=== PATIENT | female | born 1975 | race Caucasian/White ===

== ENCOUNTER 2020-12-05 15:09 | Outpatient (REF) | payer BC, SELFPAY ==
--- NOTE | ~2020-12-05 | MM_ITS ---
EXAMINATION: MM SCREENING DIGITAL BREAST TOMOSYNTHESIS, BILATERAL CLINICAL INFORMATION: Screening. Asymptomatic. The lifetime risk of breast cancer based on the Tyrer-Cuzick Model is 7%. COMPARISON: Mammography: 11/30/2019, 05/06/2018 (baseline). TECHNIQUE: Digital breast tomosynthesis is performed in both the craniocaudal and mediolateral oblique views along with computer-aided detection (CAD). Synthesized 2D images are generated from the tomosynthesis. FINDINGS: There are scattered areas of fibroglandular density (ACR BI-RADS breast composition Category b). Parenchymal pattern is similar to prior study and borders on heterogeneously dense. There is denser parenchymal tissue composition again in the bilateral upper outer quadrants along with numerous bilateral scattered similar appearing punctate round calcifications. There is no developing density or interval mass or architectural abnormality. The axilla and skin contours are unremarkable. MM/MM tomosynthesis screening BI IMPRESSION: No mammographic evidence of malignancy. ASSESSMENT: BI-RADS 2: Benign RECOMMENDATION: Routine annual mammography screening. This patient's information was entered into a reminder system with a target due date for their next mammogram.
== END 2020-12-05 15:10 | disposition home or self-care (01) ==
LOC: HO.MAMMO 15:09
PROVIDERS: Visit Provider Internal Medicine
DX: Z12.31 Encounter for screening mammogram for malignant neoplasm of breast (principal)
CPT/HCPCS: 77063; 77067

== ENCOUNTER 2021-06-07 06:53 | Outpatient (REF) | payer BC, SELFPAY ==
[2021-06-07 07:14] LABS: MANUAL DIFF FLAG NO
[2021-06-07 07:25] LABS: Basophils Percent Auto 0.9 % (0-2); Eosinophils Absolute Auto 0.1 X10*3/uL (0.0-0.4); Eosinophils Percent Auto 1.8 % (0-4); Hematocrit 39.2 % (37.0-47.0); Hemoglobin 12.2 g/dl (12.0-16.0); Imm Gran Abs Auto 0.01 X10*3/uL (0.00-0.03); Imm Gran Pct Auto 0.2 % (0.0-0.4); Lymphocytes Percent Auto 42.7 % (20-40); Mean Corpuscular HGB Conc 31.1 g/dl (31.0-35.0); Mean Corpuscular Hemoglobin 26.6 pg (27.0-33.0); Mean Corpuscular Volume 85.4 fL (80.0-98.0); Mean Platelet Volume 9.7 fL (9.4-12.3); Monocytes Absolute Auto 0.5 X10*3/uL (0.1-1.2); Monocytes Percent Auto 10.9 % (2-11); Neutrophils Percent Auto 43.5 % (45-73); Platelet Count 319 X10*3/uL (160-400); Red Blood Count 4.59 X10*6/uL (4.20-5.50); White Blood Count 4.6 X10*3/uL (4.8-10.8)
[2021-06-07 08:03] LABS: Alanine Aminotransferase 22 U/L (0-31); Albumin Level 4.1 g/dL (3.5-5.0); Alkaline Phosphatase 65 U/L (39-117); Anion Gap 10 (12-20); Aspartate Amino Transferase 23 U/L (5-31); Bilirubin Total 1.3 mg/dL (0.0-1.0); Blood Urea Nitrogen 11 mg/dL (9-16); Calcium 9.4 mg/dL (8.4-10.2); Carbon Dioxide 27 mmol/L (22-29); Chloride 105 mmol/L (96-108); Estimated Glomerular Filt Rate > 60; Glucose Random 81 mg/dL (60-115); Potassium 4.4 mmol/L (3.3-5.1); Sodium 138 mmol/L (135-145); Total Protein 7.2 g/dL (6.5-8.0)
[2021-06-07 08:12] LABS: Thyroid Stimulating Hormone 1.63 uIU/mL (0.32-4.0)
== END 2021-06-07 06:54 | disposition home or self-care (01) ==
LOC: HO.LAB 06:53
PROVIDERS: PCP Internal Medicine; Visit Provider Internal Medicine
DX: Z00.00 Encounter for general adult medical examination without abnormal findings (principal); K59.04 Chronic idiopathic constipation; R12 Heartburn
CPT/HCPCS: 36415; 80053; 84443; 85025

== ENCOUNTER 2021-12-18 14:15 | Outpatient (REF) | payer BC, SELFPAY ==
--- NOTE | ~2021-12-18 | MM_ITS ---
EXAMINATION: MM SCREENING DIGITAL BREAST TOMOSYNTHESIS, BILATERAL CLINICAL INFORMATION: Screening. Asymptomatic. The lifetime risk of breast cancer based on the Tyrer-Cuzick Model is 6.7%. COMPARISON: Mammography: December 05, 2020 and studies dating back to May 06, 2018 TECHNIQUE: Digital breast tomosynthesis is performed in both the craniocaudal and mediolateral oblique views along with computer-aided detection (CAD). Synthesized 2D images are generated from the tomosynthesis. FINDINGS: The breasts are heterogeneously dense, which may obscure small masses (ACR BI-RADS breast composition Category c). There are no new significant masses, abnormal calcifications, or other abnormalities. There is again noted to be multiplicity and bilaterality of calcifications. MM/MM tomosynthesis screening BI IMPRESSION: No significant changes from prior exam. ASSESSMENT: BI-RADS 2: Benign RECOMMENDATION: Routine annual mammography screening. This patient's information was entered into a reminder system with a target due date for their next mammogram.
== END 2021-12-18 14:16 | disposition home or self-care (01) ==
LOC: HO.MAMMO 14:15
PROVIDERS: Visit Provider Internal Medicine
DX: Z12.31 Encounter for screening mammogram for malignant neoplasm of breast (principal)
CPT/HCPCS: 77063; 77067

== ENCOUNTER 2022-06-21 06:25 | Outpatient (REF) | payer OTHER, SELFPAY ==
[2022-06-21 08:16] LABS: Alanine Aminotransferase 7 U/L (0-31); Albumin Level 3.8 g/dL (3.5-5.0); Alkaline Phosphatase 62 U/L (39-117); Anion Gap 13 (12-20); Aspartate Amino Transferase 14 U/L (5-31); Bilirubin Total 1.5 mg/dL (0.0-1.0); Blood Urea Nitrogen 8 mg/dL (9-16); Carbon Dioxide 27 mmol/L (22-29); Chloride 106 mmol/L (96-108); Estimated Glomerular Filt Rate > 60; Glucose Random 76 mg/dL (60-115); Potassium 3.6 mmol/L (3.3-5.1); Sodium 142 mmol/L (135-145); Total Protein 6.6 g/dL (6.5-8.0)
== END 2022-06-21 06:26 | disposition home or self-care (01) ==
LOC: HO.LAB 06:25
PROVIDERS: PCP Internal Medicine; Visit Provider Internal Medicine
DX: Z00.00 Encounter for general adult medical examination without abnormal findings (principal); K59.04 Chronic idiopathic constipation; R12 Heartburn
CPT/HCPCS: 36415; 80053

== ENCOUNTER 2022-07-18 12:05 | Outpatient (REF) | payer OTHER, SELFPAY ==
--- NOTE | ~2022-07-18 | XR_ITS ---
EXAMINATION: XR BOTH KNEES AP STANDING XR LEFT KNEE, 2 VIEWS CLINICAL INFORMATION: Pain. COMPARISON: None available. TECHNIQUE: Standing AP view of both knees and lateral and sunrise views of the left knee. FINDINGS: Right Knee: No displaced fracture. No dislocation. No joint space narrowing or marginal osteophytes. No osseous erosion. No abnormal soft tissue calcification. Left Knee: No acute fracture or dislocation. No joint space narrowing or marginal osteophytes. No osseous erosion. No abnormal soft tissue calcification. No significant joint effusion. XR/XR knee LT 2V IMPRESSION: RIGHT KNEE: Unremarkable examination. LEFT KNEE: Unremarkable examination.
--- NOTE | ~2022-07-18 | XR_ITS ---
EXAMINATION: XR BOTH KNEES AP STANDING XR LEFT KNEE, 2 VIEWS CLINICAL INFORMATION: Pain. COMPARISON: None available. TECHNIQUE: Standing AP view of both knees and lateral and sunrise views of the left knee. FINDINGS: Right Knee: No displaced fracture. No dislocation. No joint space narrowing or marginal osteophytes. No osseous erosion. No abnormal soft tissue calcification. Left Knee: No acute fracture or dislocation. No joint space narrowing or marginal osteophytes. No osseous erosion. No abnormal soft tissue calcification. No significant joint effusion. XR/XR knee standing BI IMPRESSION: RIGHT KNEE: Unremarkable examination. LEFT KNEE: Unremarkable examination.
== END 2022-07-18 12:06 | disposition home or self-care (01) ==
LOC: HO.HOSX 12:05
PROVIDERS: Visit Provider Orthopaedic Surgery
DX: M23.92 Unspecified internal derangement of left knee (principal)
CPT/HCPCS: 73560; 73565

== ENCOUNTER 2022-09-08 03:10 | Emergency (ER) | payer OTHER, SELFPAY ==
[2022-09-08 03:14] VITALS: BP 122/69; PULSE 117; RESP 18; TEMP 36.2; O2SAT 99; BMI 27.5
--- NOTE | 2022-09-08 04:24 | ED.NAVMDI ---
HPI - Nausea/Vomiting/Diarrhea General Chief complaint: Nausea/Vomiting/Diarrhea Stated complaint: n/v/n Time Seen by Provider: 09/08/22 03:24 Source: patient Mode of arrival: ambulatory Limitations: no limitations History of Present Illness HPI Narrative: 46-year-old female presents with nausea, vomiting and diarrhea. Symptoms started 2 days ago. She had 2 episodes of nonbilious nonbloody emesis. She has had several loose bowel movements that have been nonbloody. She denies any sick contacts. She has had no fevers or chills. She does have epigastric abdominal pain. The pain is moderate to severe. There is no clear relieving or exacerbating features. When she has a cramping sensation no, she has nausea and/or vomiting as well as diarrhea Related Data Home Medications Medication Instructions Recorded Confirmed pantoprazole 40 mg tablet,delayed 40 mg PO DAILY 07/18/22 release Previous Rx's Medication Instructions Recorded ondansetron 4 mg disintegrating 4 mg PO Q8H PRN nausea and 09/08/22 tablet vomiting #14 tabs Allergies Allergy/AdvReac Type Severity Reaction Status Date / Time No Known Allergies Allergy Verified 09/08/22 03:14 Review of Systems Review of Systems: CONSTITUTIONAL: Denies weight loss, fever and chills. HEENT: Denies changes in vision and hearing. RESPIRATORY: Denies SOB and cough. CV: Denies palpitations no CP. GI: Positive abdominal pain, nausea, vomiting and diarrhea. : Denies dysuria and urinary frequency. MSK: Denies myalgia and joint pain. SKIN: Denies rash and pruritus. NEUROLOGICAL: Denies headache and syncope. PSYCHIATRIC: Denies recent changes in mood. Denies anxiety and depression. All other ROS are negative unless in [facility] Social History Social History Advance Directives: No Advance Directives Information Provided: No Physical Exam Vital Signs: Vital Signs: Last Vital Signs Temp 97.2 F 09/08/22 03:14 Pulse 117 H 09/08/22 03:14 Resp 18 09/08/22 03:14 BP 122/69 09/08/22 03:14 Pulse Ox 99 09/08/22 03:14 O2 Del Method Room Air 09/08/22 03:14 BMI result Body Mass Index 27.5 GEN: Well developed, no acute distress, alert, oriented HEENT: Normocephalic, atraumatic, normal external ears, nose appears normal, no oropharyngeal edema or exudates Eyes: Normal to appearance Neck: Supple, no lymphadenopathy Respiratory: Talks in complete sentences, no respiratory distress, clear to auscultation bilaterally Cardiovascular: Regular rate and rhythm, no murmurs rubs or gallops Abdomen: Soft, epigastric tenderness, negative Blue sign, negative McBurney's point tenderness, nondistended, no guarding, no rebound Back: No CVA tenderness Extremities: No clubbing cyanosis or edema Neurologic: No focal neurologic deficits, cranial nerves 2-12 intact, strength is 5/5 bilaterally Skin: No rash Course Course Course Narrative: 46-year-old female presents with epigastric abdominal pain, nausea, vomiting and diarrhea. Examination revealed tenderness without rebound or guarding. Negative Blue sign arguing against acute cholecystitis. She has negative McBurney's point tenderness arguing against acute appendicitis. Most likely she has gastroenteritis, or pancreatitis. Patient receive IV fluids, antiemetics, analgesics and H2 swati. Patient will have frequent re-evaluation Reevaluation(s) Reevaluation #1: Patient is feeling much better at this time. Discussed all results. Patient will make sure she maintains hydration. I will prescribe the patient antiemetics. She will return for inability to tolerate oral intake. She follow-up with her primary care doctor as needed. Time: 06:07 Medications Administered Discontinued Medications Generic Name Dose Route Start Last Admin Trade Name Freq PRN Reason Stop Dose Admin Famotidine 20 mg 09/08/22 03:45 09/08/22 05:05 Famotidine/Pf 20 Mg/2 Ml Vial IVPUSH 09/08/22 03:46 20 mg ONCE ONE Administration Sodium Chloride 1,000 mls @ 999 mls/hr 09/08/22 03:45 09/08/22 04:52 Ns IV 09/08/22 04:45 999 mls/hr .Q1H1M LEE Administration Ketorolac Tromethamine 15 mg 09/08/22 03:45 09/08/22 05:05 Ketorolac Tromethamine 15 Mg/Ml Vial IVPUSH 09/08/22 03:46 15 mg ONCE ONE Administration Ondansetron HCl 4 mg 09/08/22 03:45 09/08/22 05:05 Ondansetron Hcl 4 Mg/2 Ml Vial IVPUSH 09/08/22 03:46 4 mg ONCE ONE Administration Medical Decision Making Medical Decision Making [facility] Narrative: 46-year-old female presents with epigastric abdominal pain associated with nausea, vomiting and diarrhea. Examination revealed epigastric tenderness, no pulsatile masses, no rebound, no guarding. She had negative Blue sign arguing against acute cholecystitis. No McBurney's point tenderness arguing against acute appendicitis. She had no CVA tenderness, doubt acute pyelonephritis or renal colic. Differential diagnosis could include gastritis, peptic ulcer, pancreatitis, gastroenteritis. Doubt catastrophic intra-abdominal pathology such as AAA, dissection, mesenteric ischemia. There is no indication for emergent imaging of the abdomen. Will provide patient with intravenous fluids, analgesics, antiemetics, H2 blockers. I will re-evaluate the patient following workup. Differential Diagnosis Differential Diagnoses: The differential diagnosis associated with the presentation includes (See above) Lab Data [facility] Lab Attestation statement: I reviewed the patient's lab results. 09/08/22 04:51 09/08/22 04:51 Labs: Lab Results 09/08/22 09/08/22 Range/Units 04:51 04:51 WBC 9.1 (4.8-10.8) X10*3/uL RBC 4.72 (4.20-5.50) X10*6/uL Hgb 11.9 L (12.0-16.0) g/dl Hct 38.2 (37.0-47.0) % MCV 80.9 (80.0-98.0) fL MCH 25.2 L (27.0-33.0) pg MCHC 31.2 (31.0-35.0) g/dl RDW 16.4 H (11.0-16.0) % Plt Count 347 (160-400) X10*3/uL MPV 9.4 (9.4-12.3) fL Immature Gran % (Auto) 0.3 (0.0-0.4) % Neut % (Auto) 90.8 H (45-73) % Lymph % (Auto) 3.5 L (20-40) % [place] % (Auto) 5.0 (2-11) % Eos % (Auto) 0.1 (0-4) % Baso % (Auto) 0.3 (0-2) % Lymph # (Auto) 0.3 L (1.2-4.9) X10*3/uL [place] # (Auto) 0.5 (0.1-1.2) X10*3/uL Eos # (Auto) 0.0 (0.0-0.4) X10*3/uL Baso # (Auto) 0.0 (0.0-0.2) X10*3/uL Abs Immat Gran (auto) 0.03 (0.00-0.03) X10*3/uL Absolute Neuts (auto) 8.3 (2.0-8.3) x10*3/uL Absolute Nucleated RBC 0.000 (0.0-0.012) X10*3/uL Nucleated RBC % (auto) 0.0 (0.0-0.2) /100WBC Smear Tech's Comments VERIFIED Sodium 137 (135-145) mmol/L Potassium 3.3 (3.3-5.1) mmol/L Chloride 107 (96-108) mmol/L Carbon Dioxide 22 (22-29) mmol/L Anion Gap 11 L (12-20) BUN 10 (9-16) mg/dL Creatinine 0.75 (0.5-1.4) mg/dL Estim Creat Clear Calc 92.5 Estimated GFR > 60 Random Glucose 120 H (60-115) mg/dL Calcium 8.6 (8.4-10.2) mg/dL Total Bilirubin 1.9 H (0.0-1.0) mg/dL AST 16 (5-31) U/L ALT 14 (0-31) U/L Alkaline Phosphatase 88 (39-117) U/L Total Protein 7.7 (6.5-8.0) g/dL Albumin 4.1 (3.5-5.0) g/dL Lipase 22 (8-78) U/L Independent Historian Clinical information obtained from an independent historian. History obtained from or confirmed by: Spouse Prescription Management I considered prescription management with: Pain Medication Discharge Plan Discharge Clinical Impression: Gastroenteritis Patient Disposition: Home, Self-Care Instructions: Gastroenteritis (ED) Prescriptions: New ondansetron 4 mg tablet,disintegrating 4 mg PO Q8H PRN (Reason: nausea and vomiting) Qty: 14 0RF No Action pantoprazole 40 mg tablet,delayed release (DR/EC) 40 mg PO DAILY Referrals: Brianna Huff MD [Primary Care Provider] - 2 days
[2022-09-08] MEDS: 0.9 % Sodium Chloride 1,000 ML 999 ML IV (04:52)
[2022-09-08 04:57] LABS: Basophils Percent Auto 0.3 % (0-2); Eosinophils Percent Auto 0.1 % (0-4); Hematocrit 38.2 % (37.0-47.0); Hemoglobin 11.9 g/dl (12.0-16.0); Imm Gran Abs Auto 0.03 X10*3/uL (0.00-0.03); Imm Gran Pct Auto 0.3 % (0.0-0.4); Lymphocytes Absolute Auto 0.3 X10*3/uL (1.2-4.9); Lymphocytes Percent Auto 3.5 % (20-40); MANUAL DIFF FLAG SCAN; Mean Corpuscular HGB Conc 31.2 g/dl (31.0-35.0); Mean Corpuscular Hemoglobin 25.2 pg (27.0-33.0); Mean Corpuscular Volume 80.9 fL (80.0-98.0); Mean Platelet Volume 9.4 fL (9.4-12.3); Monocytes Absolute Auto 0.5 X10*3/uL (0.1-1.2); Neutrophils Absolute Auto 8.3 x10*3/uL (2.0-8.3); Neutrophils Percent Auto 90.8 % (45-73); Platelet Count 347 X10*3/uL (160-400); Red Blood Count 4.72 X10*6/uL (4.20-5.50); Red Cell Distribution Width 16.4 % (11.0-16.0); SCAN SMEAR FLAG 1; White Blood Count 9.1 X10*3/uL (4.8-10.8)
[2022-09-08] MEDS: Ketorolac Tromethamine 15 MG/ML VIAL IVPUSH (05:05)
[2022-09-08] MEDS: ondansetron HCL 4 MG/2 ML VIAL IVPUSH (05:05)
[2022-09-08] MEDS: Famotidine/PF 20 MG/2 ML VIAL IVPUSH (05:05)
[2022-09-08 05:14] LABS: Alanine Aminotransferase 14 U/L (0-31); Albumin Level 4.1 g/dL (3.5-5.0); Alkaline Phosphatase 88 U/L (39-117); Anion Gap 11 (12-20); Aspartate Amino Transferase 16 U/L (5-31); Bilirubin Total 1.9 mg/dL (0.0-1.0); Blood Urea Nitrogen 10 mg/dL (9-16); Calcium 8.6 mg/dL (8.4-10.2); Carbon Dioxide 22 mmol/L (22-29); Chloride 107 mmol/L (96-108); Creatinine Clr Calc Pharmacy 92.5; Estimated Glomerular Filt Rate > 60; Glucose Random 120 mg/dL (60-115); Lipase 22 U/L (8-78); Potassium 3.3 mmol/L (3.3-5.1); Sodium 137 mmol/L (135-145); Total Protein 7.7 g/dL (6.5-8.0)
[2022-09-08 05:18] LABS: SLIDE REVIEW VERIFIED
[2022-09-08 06:00] VITALS: BP 99/54; PULSE 94; RESP 19; O2SAT 96
== END 2022-09-08 07:17 | disposition home or self-care (01) ==
PROVIDERS: Emergency Provider Emergency Medicine; PCP Internal Medicine
DX: K52.9 Noninfective gastroenteritis and colitis, unspecified (principal); R11.2 Nausea with vomiting, unspecified; Z79.899 Other long term (current) drug therapy
CPT/HCPCS: 36415; 80053; 83690; 85025; 96374; 96375; 99284; J1885; J2405

== ENCOUNTER 2022-12-24 09:23 | Day surgery (SDC) | payer OTHER, SELFPAY ==
--- NOTE | 2022-12-23 10:17 | HO.ANESPROP2 ---
HPI - Anesthesia Eval Consult details Narrative: 47yo F for Upper Endoscopy and Colonoscopy PMFSH Active Problems Active Problems: All Active Problems (Updated 12/23/22 @ 06:44 by Amina Kraus RN) Internal derangement of left knee (Acute) Past Medical History Medical History GERD (gastroesophageal reflux disease) Surgical History Surgical History History of tubal ligation Social History Social History Patient Tobacco Use Status: Never used Tobacco Have you been hit, kicked, punched, or otherwise hurt by someone within the past year? If so, by whom?: No Are you DNR?: No Advance Directives: No Advance Directives Information Provided: Yes Recently lost weight without trying: No Eating poorly because of decreased appetite: No Nutrition Risks: No Nutritional Risk Patient : No Meds Allergies Allergy/AdvReac Type Severity Reaction Status Date / Time No Known Allergies Allergy Verified 09/08/22 03:14 Home Medications Medication Instructions Recorded Confirmed Last Taken Type pantoprazole 40 mg tablet,delayed 40 mg PO DAILY 07/18/22 Unknown History release Exam Exam Date and Time: December 23, 2022 1017 Pertinent Lab Results Pertinent Lab Results: Laboratory Tests 09/08/22 04:51 WBC 9.1 Hgb 11.9 L Hct 38.2 Plt Count 347 Sodium 137 Potassium 3.3 Chloride 107 Carbon Dioxide 22 BUN 10 Creatinine 0.75 Assessment and Plan Assessment Anesthesia Assessment: Chart Reviewed
[2022-12-24 10:25] VITALS: BP 144/85; PULSE 76; RESP 18; TEMP 36.6; O2SAT 99
[2022-12-24] MEDS: Lactated Ringers 1,000 ML 100 ML IVCONT (10:27)
[2022-12-24 10:28] VITALS: BMI 28.8
--- NOTE | 2022-12-24 10:58 | MHC.SHP ---
Pre-Procedural Eval Section A Date of Service: 12/24/22 Section B Chief Complaint: reflux disease,screening Details of Present Illness: see H&P no chnages Relevant Family History (Specify if Yes): No Relevant Social History: None Present Medications: see Short Stay Collaborative assessment Medical History: No relevant PMH History of Previous Operations: No relevant previous surgery Allergies: Allergies Allergy/AdvReac Type Severity Reaction Status Date / Time No Known Allergies Allergy Verified 09/08/22 03:14 Review of Systems Sugical H&P ROS: Negative: Constitution, Cardiovascular, Respiratory, Neurological, Psychiatric, Hem-Onc, Allergic/Immunologic, Gastrointestinal, Genitourinary, Musculoskeletal, Integumentary, Endocrine and Eyes/Ears/Nose/Throat Exam Surgical H&P Exam: Normal: HEENT, Normal: Heart, Normal: Lungs, Normal: Extremities, Normal: Abdomen, Normal: Skin and Normal: Neurological Plan Diagnosis/Plan: Unchanged I have reviewed the history and physical and performed a pertinent physical examination on my patient. No changes have occurred unless specified. Time Spent With Patient Time: Total time managing care of this patient today ____ minutes.
--- NOTE | 2022-12-24 11:48 | P.BOP_ITS ---
Brief Operative Note Date of Service: 12/24/22 Pre-op diagnosis: gerd screening Procedure: egd colonoscopy Surgeon: Lance Lowery Anesthesia: MAC Was an [employer] used for this Procedure?: No Estimated blood loss (mL): 5 Pathology: other Condition: stable Disposition: PACU
[2022-12-24 11:51] VITALS: BP 100/57; PULSE 85; RESP 16; TEMP 36.6; O2SAT 100
[2022-12-24 12:06] VITALS: BP 125/83; PULSE 85; RESP 16; TEMP 36.6; O2SAT 100
--- NOTE | 2022-12-24 12:06 | OP_ITS ---
DATE OF SERVICE: 12/24/2022 SURGEON: Lance Lowery MD INDICATIONS: 1. Gastroesophageal reflux disease. 2. Colon cancer screening. PREOPERATIVE DIAGNOSIS: POSTOPERATIVE DIAGNOSIS: PROCEDURE PERFORMED: Upper endoscopy with biopsy, colonoscopy to the terminal ileum. ESTIMATED BLOOD LOSS: COMPLICATIONS: ANESTHESIA: Monitored anesthesia care. ASSISTANTS: SPECIMENS: DESCRIPTION OF PROCEDURE: A history and physical was performed. The risks and benefits of the procedure were explained to the patient. Informed consent was obtained. The patient was placed in the left lateral decubitus position. The Olympus video gastroscope was introduced into the esophagus, stomach, and duodenum. Examination was performed. The scope was removed. She was repositioned for colonoscopy. A digital rectal exam was performed and was found to be normal. The Olympus pediatric video colonoscope was introduced into the rectum and advanced to the cecum. The cecum was identified by transillumination, palpation, and identification of ileocecal valve. Examination was performed. The scope was removed. She tolerated both procedures well and was returned to the recovery area in stable condition. FINDINGS: Upper endoscopy: 1. Esophagus: The esophagus was normal. Biopsies were obtained from the EG junction. There was no esophagitis. 2. Stomach: The stomach showed no evidence of masses, ulcers, or polyps. Antral biopsies were obtained to evaluate for H pylori. 3. Duodenum: The bulb and 2nd portion were normal. Colonoscopy: The terminal ileum was normal. The visualized colonic mucosa was within normal limits without evidence of masses or ulcers. No polyps were identified. The quality of the prep was good. There was mild sigmoid diverticulosis. Retroflexed examination showed some small internal hemorrhoids and hypertrophic anal papillae. IMPRESSION: 1. Gastroesophageal reflux disease. 2. Normal colonoscopy. RECOMMENDATION: 1. Follow up the biopsy results. 2. Repeat colonoscopy is recommended in 10 years for average risk individuals. MD JARRETT Lopez/[facility] / [phone]
== END 2022-12-24 12:33 | disposition home or self-care (01) ==
PROVIDERS: PCP Internal Medicine; Visit Provider Internal Medicine Gastroenterology
PROC: (CPT 45378; principal; 2022-12-24 10:40)
DX: Z12.11 Encounter for screening for malignant neoplasm of colon (principal); K57.30 Diverticulosis of large intestine without perforation or abscess without bleeding; K62.89 Other specified diseases of anus and rectum; K64.8 Other hemorrhoids; K21.9 Gastro-esophageal reflux disease without esophagitis; K29.50 Unspecified chronic gastritis without bleeding; B96.81 Helicobacter pylori [H. pylori] as the cause of diseases classified elsewhere; Z79.899 Other long term (current) drug therapy
CPT/HCPCS: 45378; 43239; 88305; 88342

== ENCOUNTER 2023-01-15 14:30 | Outpatient (REF) | payer OTHER, SELFPAY ==
--- NOTE | ~2023-01-15 | MM_ITS ---
EXAMINATION: MM SCREENING DIGITAL BREAST TOMOSYNTHESIS, BILATERAL CLINICAL INFORMATION: Screening. Asymptomatic. COMPARISON: Mammography: This study is compared with prior exams dating back to 2019. TECHNIQUE: Digital breast tomosynthesis is performed in both the craniocaudal and mediolateral oblique views along with computer-aided detection (CAD). Synthesized 2D images are generated from the tomosynthesis. FINDINGS: The breasts are heterogeneously dense, which may obscure small masses (ACR BI-RADS breast composition Category c). There are no significant masses, abnormal calcifications, or other abnormalities. There are bilateral benign calcifications in each breast. MM/MM tomosynthesis screening BI IMPRESSION: No mammographic evidence of malignancy. ASSESSMENT: BI-RADS BI-RADS 2 - Benign Findings RECOMMENDATION: Routine annual mammography screening. 1 year F/U This examination should not preclude the clinical evaluation of a suspicious palpable abnormality. This patient's information was entered into a reminder system with a target due date for their next mammogram.
== END 2023-01-15 14:31 | disposition home or self-care (01) ==
LOC: HO.MAMMO 14:30
PROVIDERS: PCP Internal Medicine; Visit Provider Internal Medicine
DX: Z12.31 Encounter for screening mammogram for malignant neoplasm of breast (principal)
CPT/HCPCS: 77063; 77067

== ENCOUNTER → 2023-01-15 15:00 | Outpatient (BNV) | payer OTHER, SELFPAY | PROVIDERS: PCP Internal Medicine; Visit Provider Radiology Diagnostic Radiology | DX: Z12.31 Encounter for screening mammogram for malignant neoplasm of breast (principal) | CPT/HCPCS: 77063; 77067 ==

== ENCOUNTER 2023-03-19 15:32 | Outpatient (REF) | payer OTHER, SELFPAY | END 2023-03-19 15:33 | disposition home or self-care (01) | LOC: HO.LNP 15:32 | PROVIDERS: Visit Provider Internal Medicine Gastroenterology | DX: A04.8 Other specified bacterial intestinal infections (principal) | CPT/HCPCS: 87338 ==